=== PATIENT | male | born 1975 | race Caucasian/White ===

== ENCOUNTER 2021-09-04 01:22 | Outpatient (CLI) | payer OTHER, SELFPAY ==
[2021-09-04 11:47] LABS: Source Nasal/Nares
[2021-09-04 13:54] LABS: COVID-19 PCR Negative (Negative)
== END 2021-09-04 01:23 | disposition home or self-care (01) ==
LOC: LBO 01:22
PROVIDERS: PCP Nurse Practitioner Family; Visit Provider Surgery
DX: Z20.822 Contact with and (suspected) exposure to COVID-19 (principal)
CPT/HCPCS: 87635

== ENCOUNTER 2021-09-06 15:25 | Day surgery (SDC) | payer OTHER, SELFPAY ==
--- NOTE | 2021-09-05 22:33 | PDOC.DSDIS_ITS ---
Discharge Plan Disposition Patient Disposition: HOME Condition: Good Discharge Details Reason For Visit: colon scope Attending Provider: Jaqui Schaffer Primary Care Provider: Nico Vazquez Home Meds and New Rx's Prescriptions: New dibucaine 1 % ointment 1 applic [place] QID PRNQty: 56 6RF Continued Tucks (witch tegan) 50 % pads, medicated 1 pad topical BID-QID PRN0RF Discontinued polyethylene glycol 3350 17 gram/dose powder 238 g PO ONCE Qty: 238 0RF Rx Instructions: take per colonoscopy instructions bisacodyl [Dulcolax (bisacodyl)] 5 mg tablet,delayed release (DR/EC) 5 mg PO ONCE Qty: 4 0RF Rx Instructions: take per colonoscopy instructions No Action NO DAILY MEDS 0RF Discharge Instructions Additional Instructions: DSU Colonoscopy Post- Op Instructions Instructions for Everyone who is given Anesthesia: For your safety, please do the following for the next twenty-four (24) hours: *Do Not operate a motor vehicle (car, truck, motorcycle, etc.) *Do Not drink alcoholic beverages or use any recreational drugs for the first 24 hours or while taking pain medications. The medications in your body may have a reaction that can be dangerous. *Do Not make any important decisions or sign any important papers. Findings:Normal colon hemorrhoidal banding x1 Follow up: 1. No lifting over 20 pounds or strenuous activity for the first 24 hours after your procedure. After 24 hours there are no restrictions on your activity but you may feel fatigued for a few days. 2. After you arrive home you may have a light meal and return to your normal diet as you can tolerate it without feeling sick to your stomach. 3. You may have a bloated, gaseous feeling in your belly (abdomen) after a colonoscopy. Passing gas and belching will help. Walking or lying down on your left side with your knees flexed may relieve the discomfort. Pain Relief From Hemorrhoids Hemorrhoid banding itself is not painful, but it is normal for patients to experience a sense of fullness or pressure after the procedure. Tylenol or Ibuprofen usually alleviates any symptoms. Post-Procedure Do's & Don'ts Do?s: ? Take fiber supplements to avoid constipation ? Squeeze your buttocks muscles 10-15 times every two hours ? Take 10-15 deep breaths every 1-2 hours ? Drink plenty of water ? Engage in moderate exercise ? If you experience pain/muscle spasms- soak in a tub of warm water, and after every bowel movement Don?ts: ? Stay seated for more than 2-3 hours ? Rub or scrub the anus too vigorously ? Try to force a bowel movement ? if you cannot go, stop and try again later ? Insert anything into the anus for two weeks ? unless you have been prescribed anorectal medication ? Avoid alcohol, as it can dehydrate you and lead to constipation Occasionally, you may experience bleeding after the hemorrhoid banding procedure. Do not be concerned if there is a minimal amount of blood. However, if bleeding continues, lie flat with your bottom higher than your head and apply an ice pack to the area. If the bleeding does not stop within a half-hour, call our office or go to the emergency room. Bleeding complications are uncommon and occur <1% of the time. Additional Tips ? To avoid constipation, take two tablespoons of natural wheat bran, natural oat bran, flax, Benefiber or any over the counter fiber supplement with 7-8 glasses of water. ? Call the office at [phone] (Office) or [phone] (Hospital) right away if you notice any of the following: a.Vomiting of blood or ?coffee ground stools?. b.Rectal bleeding 1Tbsp, blood clots or continuous bleeding. c.Severe belly (abdominal) pain. d.A hard distended belly (abdomen) and an inability to pass gas. 4. Please don?t expect to have a normal BM (bowel movement) for 2-3 days after your procedure. 5. If there are questions regarding the findings of your procedure, please contact your doctor 6. If you are unable to contact your doctor with a problem, contact the hospital at [phone]. 7. Continue all your regular medications unless directed otherwise. I understand the above instructions and have no questions. Signature of Patient or Adult Escort Name of Responsible Adult Escort Signature of Nurse Date/Time Activity:: see above Diet:: see above Discharge Orders Discharge Orders: Discharge Order (Routine); Ordered 09/05/21 Ordered By: Jaqui Schaffer
--- NOTE | 2021-09-05 22:34 | W.COLOREPORT ---
Colonoscopy Report Date of procedure: 09/06/21 Pre-op diagnosis general: family hx of crc Post-op diagnosis procedure note: other (internal hemorrhoids ) Procedure: hemorrhoid banding Surgeon: Jaqui Schaffer Anesthesia Type: General:No Airway Estimated blood loss (mL): 1 Pathology: none sent Complications: None Disposition: same day Prep: Miralax/Dulcolax Retraction Time: 9 Procedure Description: After informed consent was obtained the patient was taken to the procedure room and placed in a left decubitous position. Monitors were applied and a time out was done. The patients name, date of , procedure, allergies to medications and metal in their body was reviewed. The patient was then sedated. Once sedated and comfortable a rectal exam was done. External exam was normal. Internal exam revealed a normal sphincter tone and no palpable masses. The prostate nl. The scope was then introduced and retrofelexed. Grade I internal hemorrhoids x1 column were identified. No fissures. The scope was then advanced to the cecum w/out difficulty. The TI and appendiceal orifice were identified. The scope was then slowly retracted over 9 minutes back into the rectum. There are no AVMs, polyps, diverticula identified today. The mucosa appears pink and healthy. Hemorrhoidal banding was carried out on the internal hemorrhoid. No bleeding is noted. The scope was removed and the patient was woken up and taken back to Same day surgery in stable condition. The patient tolerated the procedure well and there were no immediate complications. Follow up: The patient should follow up in 5 years unless they develop changes in bowel habits or other new gastrointestinal complaints.
--- NOTE | 2021-09-06 14:33 | W.ANESPRE ---
General Info Date of Service Date Performed: 09/06/21 Height: 6 ft Weight: 76.884 kg Body Mass Index (BMI): 22.9 Surgical Procedure: Operation Date: 09/06/21 14:20 Proposed Procedure Side Surgeon p Colonoscopy w/possible Internal Hemorrhoid Banding Jaqui Schaffer, DO Meds Allergies and Home Medications Allergies Allergy/AdvReac Type Severity Reaction Status Date / Time No Known Allergies Allergy Unverified 09/06/21 15:32 Home Medication Medication Instructions Recorded No Daily Meds 07/14/13 bisacodyl 5 mg tablet,delayed 5 mg PO ONCE #4 tab 09/02/21 release (Dulcolax (bisacodyl)) polyethylene glycol 3350 17 238 g PO ONCE #238 g 09/02/21 gram/dose oral powder witch tegan 50 % topical pads 1 pad TOPICAL BID-QID PRN 09/02/21 (Tucks (witch tegan)) Current Visit Medications: Current Medications Generic Name Dose Route Start Last Admin Trade Name Freq PRN Reason Stop Dose Admin Hyoscyamine Sulfate 0.125 mg 09/05/21 22:29 Hyoscyamine 0.125 Mg Sl/Oral/Chew SL DIRECTED PRN Ringer's Solution 1,000 mls @ 80 mls/hr 09/06/21 06:00 IV 10/05/21 23:59 INFUSION [facility] IV Miscellaneous Supplies 1 each 09/06/21 06:00 Iv Access IV 10/05/21 23:59 DIRECTED VINCENT Ondansetron HCl 4 mg 09/05/21 22:29 Ondansetron 4 Mg/2 Ml Vial IVP Q4H PRN PRN Nausea / Vomiting Sodium Chloride 0 ml 09/06/21 06:00 Normal Saline Flush 10 Ml Syr IV 10/05/21 23:59 PRN PRN Sodium Chloride 0 ml 09/06/21 06:00 Normal Saline 10 Ml Vial IJ 10/05/21 23:59 DIRECTED PRN Sterile Water 0 ml 09/06/21 06:00 Water,Injection,Sterile 10 Ml Vial IJ 10/05/21 23:59 DIRECTED PRN PFSH Active Problems Active Problems: Problem Status Onset Code Hemorrhoids K64.9 Colon cancer high risk Z91.89 Family history of breast cancer Z80.3 Surgical History Surgical History Appendectomy (~11/2004) History of vasectomy Tobacco Smoking/Tobacco Use Status: Never Second hand exposure: No Alcohol Alcohol Intake: never Substance Use Substance use: Never Substance use type: does not use Vital Signs and Lab Results Vital Signs Most Recent Vital Signs in EMR: Temp Pulse Resp BP Pulse Ox 36.6 C 70 16 142/100 H 98 09/06/21 15:34 09/06/21 15:34 09/06/21 15:34 09/06/21 15:34 09/06/21 15:34 Lab Results Blood Type / Crossmatch: No Data to Display Complete Blood Count: No Data to Display Complete Metabolic Panel: No Data to Display Liver Function Panel: No Data to Display Coagulation Panel: No Data to Display Cardiac Panel: No Data to Display Arterial Blood Gas: No Data to Display Venous Blood Gas: No Data to Display Pancreas Panel: No Data to Display Thyroid Panel: No Data to Display Infectious Disease: Coronavirus (COVID-19)(PCR) Negative (Negative) 09/04/21 09:00 09/04/21 Coronavirus 2019 Source Nasal/Nares 09/04/21 09:00 09/04/21 Blood Cultures: No Data to Display Toxicology Panel: No Data to Display Anesthesia Assessment and Plan Anesthesia History Personal History: No History of Anesthesia Complications Family History: No Family History of Anesthesia Complications Exercise Tolerance Exercise Tolerance: Metabolic Equivalents>4 Cardiac & Pulmonary Exam Cardiac Exam: Normal S1/S2 Heart Sounds Pulmonary Exam: Clear Bilateral Breath Sounds Implantable Cardiac Device Does patient have a Pacemaker or an ICD?: No Airway Exam Known Difficult Airway: No Mallampati Class: 1 Mouth Opening: Normal (> 3cm) Thyromental Distance: Greater than 3 cm Neck Range of Motion: Full ROM Neck Circumference: Normal Teeth Condition: Normal Dentition ASA Classification ASA Score: ASA 2 Emergency Case?: No NPO Status NPO Status: NPO Clears >2 hours, Solids >8 hours Anesthesia Plan Resuscitation Status: Full Code Anesthesia Technique: General Anesthesia Airway Planned: Natural Airway Monitors Used: Standard Monitors Preoperative Comments:: 45 yo male for colon and possible hemorrhoid banding. Sig PMHx: never smoker, denies major health issues.
[2021-09-06 15:34] VITALS: BP 142/100; PULSE 70; RESP 16; TEMP 36.6; O2SAT 98
[2021-09-06 15:38] VITALS: BMI 22.9
[2021-09-06] MEDS: Lactated Ringers 1,000 ML 80 ML IV (15:48)
[2021-09-06 16:22] VITALS: BP 111/82; PULSE 65; RESP 16; TEMP 36.4; O2SAT 99
[2021-09-06 16:52] VITALS: BP 118/95; PULSE 71; RESP 16; TEMP 36.9; O2SAT 100
--- NOTE | 2021-09-06 17:02 | W.ANESPOSTOP ---
Postoperative Evaluation Date, Time and Location Date Performed: 09/06/21 Time Performed: 17:03 Patient Location: Day Surgery Unit Vital Signs Most Recent Imported Vital Signs: Most Recent Vital Signs Temp Pulse Resp BP Pulse Ox 36.6 C 70 16 142/100 H 98 09/06/21 15:34 09/06/21 15:34 09/06/21 15:34 09/06/21 15:34 09/06/21 15:34 Pain Score Most Recent Pain Score: Most Recent Pain Score Pain Level 0 09/06/21 15:34 Assessment Mental Status: Awake (Alert & Oriented to Patient Baseline) Airway and Respiratory Function: Patent airway with normal (patient baseline) respiratory exam Cardiovascular Function: Hemodynamically Stable Hydration Status: Adequately Hydrated Nausea & Vomiting: No Nausea or Vomiting Pain: Pt. Denies Any Pain Peripheral Nerve Block: Patient did not receive a nerve block
== END 2021-09-06 17:19 | disposition home or self-care (01) ==
LOC: SUR 15:25
PROVIDERS: PCP Nurse Practitioner Family; Visit Provider Surgery
PROC: 0DJD8ZZ Inspection of Lower Intestinal Tract, Via Natural or Artificial Opening Endoscopic (ICD-10-PCS; CPT 45378; principal; 2021-09-06 14:15)
DX: Z12.11 Encounter for screening for malignant neoplasm of colon (principal); Z80.0 Family history of malignant neoplasm of digestive organs; K64.0 First degree hemorrhoids
CPT/HCPCS: 45378; 46221; J2001

== ENCOUNTER 2022-07-11 03:09 | Outpatient (CLI) | payer OTHER, SELFPAY ==
[2022-07-11 13:21] LABS: Hemoglobin A1C 5.1 % (<5.7)
[2022-07-11 13:32] LABS: Calculated LDL 127 mg/dL (<100); Cholesterol 203 mg/dL (<200); HDL Cholesterol 57 mg/dL (40-60); Triglyceride 95 mg/dL (<150)
== END 2022-07-11 03:10 | disposition home or self-care (01) ==
LOC: LOS 03:09
PROVIDERS: PCP Nurse Practitioner Family; Visit Provider Nurse Practitioner Family
DX: Z13.1 Encounter for screening for diabetes mellitus (principal); Z13.220 Encounter for screening for lipoid disorders
CPT/HCPCS: 36415; 80061; 83036

== ENCOUNTER 2024-07-15 14:44 | Outpatient (CLI) | payer OTHER, SELFPAY ==
[2024-07-15 12:34] LABS: Hemoglobin A1C 5.3 % (<5.7)
[2024-07-15 14:05] LABS: Calculated LDL 149 mg/dL (<100); Cholesterol 231 mg/dL (<200); HDL Cholesterol 64 mg/dL (40-60); Triglyceride 93 mg/dL (<150)
--- OUTSIDE RECORDS SUMMARY | 2024-07-15 14:52 | XMS_ITS | Encounter Summary ---
Author Organization [facility] Address [facility] [place] [address] Care Team Providers Care Sanitarian Name Role Phone Unknown Primary Care Provider Unavailabl e Encounter Details Date Type Department Care Team (Late st Contact Info) Description 09/09/2004 Orders Only Lab [facility] [place] [id number] Luis Antonio Lerner MD [place], [place] Social History Tobacco Use Types Packs/Day Years Used Date Smoking Tobacco: Never Assessed Sex and Gender Information Value Date Recorded Sex Assigned at Not on file Gender Identity Not on file Sexual Orientation Not on file documented as of this encounter Plan of Treatment Not on file documented as of this encounter Procedures Procedure Name Priority Date/Time Associated Diagnosis Comments SURGICAL PATHOLOGY REPORT Routine 09/09/2004 8:44 PM EST documented in this encounter Results * Surgical Pathology Report (09/09/2004 8:44 PM EST) Surgical Pathology Report [id number] ? Location: The signing pathologist has (i) examined the relevant preparation(s) for the specimen(s) and (ii) rendered or confirmed the diagnosis(es). . ?Pathology Surgical Pathology Final Report Clinical Information Specimen Submitted: Seg of Vas x 2 A - Right B - Left Clinical History: Elective vasectomy; Fecundity Gross Description A - Labeled/Fixative: ??R, formalin soaked gauze. Qty/Size/Weight: ? Single, 0.6 x 0.3 x 0.3 cm. Tissue Description: ?Firm, mclaughlin, cylindrical portion of tissue. Sections/Processin g: ?? (T1) B - Labeled/Fixative: ??L, formalin. Qty/Size/Weight: ? Single, 0.6 x 0.3 x 0.3 cm. Tissue Description: ?Firm, mclaughlin, cylindrical portion of tissue. Sections/Processin g: ?? (T1) ??crh/EJR Microscopic Description Slides reviewed, microscopic description not recorded. Diagnosis A - Segment of vas, right: ?Complete luminal cross section is identified. B - Segment of vas, left: ?Complete luminal cross section is identified. CR-0 09/11/04 AJE 09/11/04 Verified by: ? Ross Montoya MD ?Pathologist ?(Electronic Signature) The attending pathologist whose signature appears on this report has reviewed all diagnostic slides and has edited the gross and/or microscopic portion of the report in rendering the final pathologic diagnosis. Comment A&B - No histopathologic changes identified. MAYUR ELIZABETH 09/09/2004 8:44 PM EST Luis Antonio Lerner MD PATHOLOGY/CYTOLOGY O RDERAFRANK Performing Organization Address City/State/[facility] Co de Phone Number MAYUR ELIZABETH documented in this encounter Visit Diagnoses Not on filedocumented in this encounter Care Teams Sanitarian Relationship Specialty Start Date End Date Unknown None PCP - General 06/04/10 documented as of this encounter
--- OUTSIDE RECORDS SUMMARY | 2024-07-15 14:52 | XMS_ITS | Clinical Summary ---
Author Organization [facility] [place] [address] Care Team Providers Care Seam Closer Name Role Phone Unknown Primary Care Provider Unavailabl e Social History Tobacco Use Types Packs/Day Years Used Date Smoking Tobacco: Never Assessed Sex and Gender Information Value Date Recorded Sex Assigned at Not on file Gender Identity Not on file Sexual Orientation Not on file Plan of Treatment Health Maintenance Due Date Last Done Comments CT Colonography 1977 Colonoscopy 1977 Colorectal Cancer Screening 1977 FIT DNA 1977 FIT 1977 Sigmoidoscopy (10 year) with FIT yearly 1977 Sigmoidoscopy 1977 HIV screen 11/25/1995 Hepatitis C Screening 11/25/1995 Lipid Screening 11/25/1995 Hepatitis B vaccine (0-59 yrs) (1) 1996 Tetanus/Diphtheria/Pertussis Vaccines (1 - Tdap) 11/24 Covid-19 Vaccine (1 - 2023- season) 2024 Influenza (Flu) vaccine (1 o f 1 - Influenza standard series) 03/13/2024 Care Teams Seam Closer Relationship Specialty Start Date End Date Unknown None PCP - General 06/04/10
== END 2024-07-15 14:45 | disposition home or self-care (01) ==
LOC: LOS 14:45
PROVIDERS: PCP Nurse Practitioner Family; Visit Provider Nurse Practitioner Family
DX: Z13.1 Encounter for screening for diabetes mellitus (principal); Z13.220 Encounter for screening for lipoid disorders; Z00.00 Encounter for general adult medical examination without abnormal findings; Z91.89 Other specified personal risk factors, not elsewhere classified; S49.91XA Unspecified injury of right shoulder and upper arm, initial encounter
CPT/HCPCS: 36415; 80061; 83036